=== PATIENT | male | born 1950 | race Caucasian/White ===

== ENCOUNTER 2024-03-17 08:44 | Day surgery (SDC) | payer MEDICARE, MEDICAID, SELFPAY ==
[2024-03-16 12:28] LABS: Basophils % (Auto) 0 % (0-2.5); Eosinophils % (Auto) 1 % (0-10); Hematocrit 42.1 % (41.0-53.0); Hemoglobin 13.1 g/dL (13.5-16.0); Immature Granulocytes % (Auto) 1 % (0-0); Immature Granulocytes Auto 0.06 Thou/mm3 (0.00-0.00); Lymphocytes # (Auto) 0.7 Thou/mm3 (1.0-4.8); Lymphocytes % (Auto) 14 % (10-50); Mean Corpuscular HGB Conc 31.1 g/dl (31.0-37.0); Mean Corpuscular Hemoglobin 25.6 pg (25.0-35.0); Mean Corpuscular Volume 82 fL (80-100); Monocytes # (Auto) 0.4 Thou/mm3 (0.0-0.8); Monocytes % (Auto) 9 % (0-12); Neutrophils # (Auto) 3.9 Thou/mm3 (1.8-7.7); Neutrophils % (Auto) 75 % (37-80); Nucleated Red Blood Cell % 0 /100 WBC (0); Platelet Count 169 Thou/mm3 (140-440); RDW Standard Deviation 53.4 fL (35.1-43.9); Red Blood Count 5.11 Miln/mm3 (4.50-5.90); White Blood Count 5.2 Thou/mm3 (3.8-10.6)
[2024-03-16 12:35] LABS: Anion Gap 8 (7-16); BUN/Creatinine Ratio 20 Ratio (12-20); Blood Urea Nitrogen 26 mg/dL (9-23); Calcium 9.2 mg/dL (8.3-10.6); Carbon Dioxide 23.1 mMol/L (20.0-31.0); Chloride 104 mMol/L (98-107); Creatinine (Component) 1.3 mg/dL (0.6-1.3); Glucose 271 mg/dL (74-106); INR 1.2 (0.9-1.3); Osmolality,Calculated 284 (275-295); Partial Thromboplastin Time 30.3 Seconds (22.0-36.0); Prothrombin Time 12.5 Seconds (9.0-12.2); Sodium 135 mMol/L (136-145); eGFR 58 See Note
[2024-03-17] VITALS (9 sets, daily range): BP systolic 104–153; BP diastolic 65–113; PULSE 55–91; RESP 16–85; TEMP 36.7–36.8; O2SAT 94–100; BMI 26.2
--- NOTE | 2024-03-17 08:34 | ECHO_ITS ---
Transesophageal Echo Report Ht (in): 60 Wt (lb): 158 Exam Location: Infrastructure Consultant Status: Outpatient Ferry Operator: Jyotsna Blanca Indications: Procedure Performed: BP: 153 / 113 HR: 93 Contrast: Agitated Saline Rhythm: Atrial fibrillation Technical Quality: Fair Total Dose(mL): MEASUREMENTS DOPPLER TR Peak Velocity 341.0 cm/s TR Peak Gradient 46.8 mmHg (Male / Female) Normal Values Medications The patient is medicated with 3mg of intravenous Versed and 75mcg of intravenous Fentanyl. Complications There are no complications piror to, during or in recovery from the transesophageal echocardiogram. FINDINGS Left Ventricle Normal left ventricular size, wall thickness, systolic function with no obvious regional wall motion abnormalities. The ejection fraction is visually estimated at 50%. Right Ventricle The right ventricle is normal in size and systolic function. The estimated right ventricular systoli c pressure, 61mmHg. RAP 15. Left Atrium The left atrium is moderately dilated. Right Atrium The right atrium is moderately dilated. Atrial Appendages The left atrial appendage appears normal with no evidence for thrombus. Atrial Septum The interatrial septum appears normal with no evidence of a shunt. Aorta The aorta is normal. Mitral Valve The posterior mitral valve leaflet is flail. There is ruptured chordae tendineae. The posterior mitr al valve porlaspe. There is moderate to severe mitral valve regurgitation. Aortic Valve The aortic valve is trileaflet and normal.There is mild aortic valve regurgitation. Tricuspid Valve The tricuspid valve is normal. There is moderate tricuspid valve regurgitation. Pulmonic Valve The pulmonic valve is normal. There is no significant pulmonic valve regurgitation. Vessels The pulmonary artery appears normal. The inferior vena cava pulmonary and hepatic veins appear priscila l. Pericardium The pericardium is normal.There is no significant pericardial effusion. CONCLUSIONS Indication: Afib and MR evalutaion. No evidence of LA/JOSE ALBERTO thrombus. No evidence of PFO or ASD. Negative bubble study. The posterior mitral valve leaflet is flail along with P2 scallop prolapse and ruptured chordae tend inae. Severe eccntric MR, directing anteriorly with PISA radius 1 cm. . EROA: 48 mm^2 and RVOL 71ml/beat. There is pulmonary veins systolic reversal flow. Normal LV size and low normal LV function. Estimated EF around 45-50% Normal RV size and function. Mild AI, Moderate TR. Moderate biatrial dilation Bhavik Anumandla (Electronically Signed) Final Date: 18 March 2024 01:40
[2024-03-17] MEDS: APIXABAN 2.5 MG TABLET 5 MG PO (08:58)
[2024-03-17 10:04] LABS: COVID-19 Antigen (In-House) Negative (Negative)
--- NOTE | 2024-03-17 12:00 | ESOP_ITS ---
Procedure Direct current cardioversion for uncontrolled Atrial fibrillation Moderate Conscious Sedation with Versed and Fentanyl Date of Procedure 03/17/24 Pre Op Diagnosis Paroxysmal Atrial Fibrillation Indication Atrial Fibrillation Post Op Diagnosis Normal Sinus Rhythm restored. Procedure Description Patient was in atrial fibrillation and ventricular rate was controlled came in for elective cardioversion as patient was having significant symptoms for the Afib. Decision was made to perform cardioversion for the patient after performing a transesophageal echocardiogram. Transesophageal echocardiogram was completed today and did not show any significant LA or JOSE ALBERTO thrombus.? Please see EDDIE report from today for rest of the findings.? Patient was already on anticoagulation with eliquis.. Patient was taken to the recyclable materials sorter for the EDDIE and cardioversion, both anterior and posterior pads were placed.? Patient was given moderate sedation and received a total of 4 mg of Versed and 75 mcg of fentanyl prior to the procedure to provide him enough for sedation. A biphasic defibrillator was used.? A single 100 J synchronized shock was given and the patient converted successfully into normal sinus rhythm.? No complications during or after the procedure.? Patient is doing well.? His heart rate was stable between 50 to 70 bpm and appears to be normal sinus rhythm on the telemetry.? Recommend to perform an EKG to document normal sinus rhythm postprocedure.? Patient will be monitored in the recyclable materials sorter for the next 1-2 hours and will be discharged home if hemodynamically stable. Will adjust his medications for atrial fibrillation as outpatient. Estimated Blood Loss 0 Specimen(s) Specimen(s): None Conclusion Successful direct current cardioversion of Atrial Fibrillation / Flutter to Normal Sinus Rhythm Recommendation Continue metoprolol XL 50 mg Q Day if BP stable. Continue Eliquis 5 mg BID for anticaogulation. EKG to document NSR post procedure. No driving for 24 hours. Patient recommended to follow up in 1 week in the clinic. Surgical Staff Surgeon: Bhavik Rasheed MD
[2024-03-17] MEDS: BENZOCAINE 20% (Hurricaine) SPRAY 1 DOSE TOP (12:16)
[2024-03-17] MEDS: fentaNYL CIT INJ 50 mCg/ML AMP 2ML 75 MCG IV (12:17)
[2024-03-17] MEDS: MIDAZOLAM INJ 1 MG/ML VIAL 2 ML 4 MG IV (12:17)
--- NOTE | 2024-03-17 13:08 | EKG_ITS ---
[facility] Test Date: 2024-03-17 Pat Name: TREY MAYORGA Department: Room: - Gender: Male Gate Watch: : 1950 Requested By: Bhavik Rasheed Order Number: [id number] Reading MD: Bhavik Rasheed Measurements Intervals [place] Rate: 62 P: 28 MN: 240 QRS: 78 QRSD: 109 T: 13 QT: 395 QTc: 404 Interpretive Statements SINUS RHYTHM WITH FIRST DEGREE AV BLOCK WITH FREQUENT SUPRAVENTRICULAR PREMATURE COMPLEXES No previous ECG available for comparison /store/S0/[id number].pdf
== END 2024-03-17 14:00 | disposition home or self-care (01) ==
PROVIDERS: PCP Internal Medicine Cardiovascular Disease; Referring Provider Internal Medicine Cardiovascular Disease; Visit Provider Internal Medicine Cardiovascular Disease
PROC: 5A2204Z Restoration of Cardiac Rhythm, Single (ICD-10-PCS; CPT 92960; principal; 2024-03-17 08:30)
PROC: (CPT 93312; 2024-03-17 08:30)
DX: I48.0 Paroxysmal atrial fibrillation (principal)
CPT/HCPCS: 92960; 36415; 80048; 85025; 85610; 85730; 87811; 93005; 93312; J2250; J3010; A9270

== ENCOUNTER → 2024-05-05 | Outpatient (CLI) | payer MEDICARE, MEDICAID, SELFPAY ==
[2024-05-05 14:14] LABS: Anion Gap 7 (7-16); BUN/Creatinine Ratio 26 Ratio (12-20); Blood Urea Nitrogen 37 mg/dL (9-23); Calcium 9.5 mg/dL (8.3-10.6); Carbon Dioxide 30.9 mMol/L (20.0-31.0); Chloride 103 mMol/L (98-107); Creatinine (Component) 1.4 mg/dL (0.6-1.3); Glucose 185 mg/dL (74-106); Magnesium 2.3 mg/dL (1.6-2.6); Osmolality,Calculated 294 (275-295); Potassium 3.9 mMol/L (3.4-5.1); Sodium 141 mMol/L (136-145); eGFR 53 See Note
== END | disposition home or self-care (01) ==
LOC: COPL 12:24
PROVIDERS: Referring Provider Internal Medicine Cardiovascular Disease; Visit Provider Internal Medicine Cardiovascular Disease
DX: I10 Essential (primary) hypertension (principal); I48.91 Unspecified atrial fibrillation
CPT/HCPCS: 36415; 80048; 83735

== ENCOUNTER 2024-06-14 12:57 | Emergency (ER) | payer MEDICARE, MEDICAID, SELFPAY ==
--- NOTE | 2024-06-14 13:06 | PC.NURSE ---
PT ASSESSED BY DR. THOMPSON. PER DR. THOMPSON, NO NEED TO CALL STROKE ALERT.
--- NOTE | 2024-06-14 13:23 | XR_ITS ---
Examination: CT brain head without contrast. 2-D sagittal coronal reconstructions Date and time of exam:June 14, 2024 1431 hrs. Indications: Headaches unable to open right eye beginning one week ago CTDI: vol (mGy):49.7 DLP: (mGycm):983 Technique: Multiple CT axial sections of the brain have been obtained, 5 mm slice thickness. Contrast has not been administered. 2-D sagittal, coronal reconstructions have been obtained Low dose protocols were performed. One or more of the following dose reduction techniques were used; automated exposure control, adjustment of the mA and/or KV according to patient size, use of iterative reconstruction technique. Findings: No significant ventricular enlargement. Intra-axial or extra-axial hemorrhage density is not seen. No mass effect or midline shift Basal cisterns are not remarkable. Fourth ventricle is midline. Cranial vault intact. Significant right maxillary antral right ethmoid sinus disease Impression: Negative for acute hemorrhage, mass effect or midline shift If symptoms persist, consider brain MRI follow-up
[2024-06-14 14:13] VITALS: BP 149/72; PULSE 98; RESP 20; TEMP 36.6; O2SAT 97
--- NOTE | 2024-06-14 14:50 | PD.EDNEURO ---
Neuro Symptoms Deficit-RME/HPI General Chief Complaint: Neuro Symptoms/Deficit Stated Complaint: CAN'T OPEN RIGHT EYE Time Seen by Provider: 06/14/24 13:22 Arrival date/time: 06/14/24 12:57 RME / HPI RME / HPI Narrative: This section includes all my notes and documentations, including HPI, PE, and ED course.? Bennett Toth MD HPI: 74-year-old male here with 1 week history of not being able to open the right eye. No speech or visual impairment. No loss of power in the arms or legs. No numbness or tingling. No other complaints. ROS: All negative except as documented in HPI. Physical Exam: General:? Alert and oriented.? No acute distress when remaining still.?? Eyes: PERRL. EOMI. Right proptosis noted. ENT:? No nasal congestion.??Pharynx normal. TM normal bilaterally. Neck:? Supple.? No carotid bruit. Heart:? RRR.? Lungs:? No respiratory distress.? Good air movement.? No rhonchi, wheezing, rales.?? Abdomen:? Soft and nontender.?? Legs:? No clubbing, cyanosis, edema.? Skin:? Warm and dry.?? Neuro:? Alert and oriented X 3.??Cranial nerves II to XII grossly normal. No peripheral motor deficits. I reviewed all diagnostic test results. My review of the CT report is?Negative for acute hemorrhage, mass effect or midline shift. Blood tests unremarkable. At this point, diagnoses include?ptosis of eyelid, right . Prescribed prednisone and Valtrex and recommended more outpatient workup. Based on my best medical judgment, made decision no further evaluation or treatment indicated at this time.? Patient understands and agrees to the discharge instructions customized and printed, see below. Discharge Instructions from Dr. Toth printed for you: 1. After evaluation, there is no stroke. And your blood tests were normal, including your sugar level of 112. 2. Exact cause of not being able to open your right eye for a week was not determined. Take prednisone and Valtrex as prescribed, this may help recover your disability. 3. See your private doctor on 06/15/2024 for recheck and further care. Ask to review all test results and official radiology reports, to make sure you receive all necessary follow-ups and monitoring. Ask for help with more care, including MRI imaging and referral to see specialists. 4. Seek immediate medical care with worsening, loss of power in the arms or legs, or with any concerns. Instrucciones de neil del Dr. Toth impresas para usted: 1. Despu?s de la evaluaci?n, no hay accidente cerebrovascular. Y johana an?lisis de josseline fueron normales, incluido anaya nivel de az?car de 112. 2. No se determin? la causa exacta de no poder abrir el pamela derecho valerie alison semana. [place] prednisona y Valtrex seg?n lo prescrito, esto puede ayudar a recuperar anaya discapacidad. 3. Visite a anaya m?dico privado el 15/06/2024 para volver a controlarlo y recibir m?s atenci?n. Solicite revisar todos los resultados de las pruebas y los informes radiol?gicos oficiales, para asegurarse de recibir todos los seguimientos y monitoreo necesarios. Solicite ayuda con m?s atenci?n, incluidas im?genes por resonancia magn?graeme y derivaci?n a especialistas. 4. Busque atenci?n m?dica inmediata si empeora, pierde fuerza en los brazos o las piernas o tiene alguna inquietud. Bennett Toth MD Related Data Home Medications ?Medication ?Instructions ?Recorded ?Confirmed atorvastatin 40 mg tablet 40 mg PO QDAY 02/25/24 02/25/24 bumetanide 2 mg tablet 2 mg PO QDAY 02/25/24 02/25/24 empagliflozin 25 mg tablet 25 mg PO QDAY 02/25/24 02/25/24 (Jardiance) glipizide 10 mg tablet, extended 10 mg PO BID 02/25/24 02/25/24 release 24 hr metoprolol succinate 50 mg capsule 50 mg PO QDAY 02/25/24 02/25/24 sprinkle, ext. release 24 hr tamsulosin 0.4 mg capsule 0.4 mg PO QDAY 02/25/24 02/25/24 Previous Rx's ?Medication ?Instructions ?Recorded prednisone 50 mg tablet 50 mg PO QDAY #5 tabs 06/14/24 valacyclovir 1 gram tablet 1,000 mg PO BID #10 tabs 06/14/24 (Valtrex) Allergies Allergy/AdvReac Type Severity Reaction Status Date / Time No Known Allergies Allergy Verified 10/05/20 09:23 Review of Systems Review of Systems Systems Reviewed: All systems reviewed, normal except as documented Past Medical History Past Medical History CARDIAC: Positive Cardiac Disorders, Hypercholesterolemia, Congestive Heart Failure and Hypertension GASTROINTESTINAL: Positive Gastrointestinal Disorders (nausea) ENDOCRINE: Positive Endocrine Disorders and Diabetes Mellitus Type 2 PSYCHO/SOCIAL: Positive Anxiety Family History FAMILY HISTORY: Negative Family Cardiac Disorders or Family Cancer Surgical History SURGICAL: Negative Cardiac Surgery, Pacemaker, Endocrine Surgery, Ear Surgery, Abdominal Surgery, Nephrectomy, Joint Replacement or Mastectomy Social History SMOKING STATUS: Never smoker ED Exam Narrative Physical exam: As noted in HPI Course Quality Measures none Orders Category Date Time Status CT head/brain wo con Stat Exams 06/14/24 13:23 Completed CBC Stat Lab 06/14/24 15:41 Completed CMP [Comprehensive Metabolic Panel] Stat Lab 06/14/24 15:41 Completed CRP [C-Reactive Protein] Stat Lab 06/14/24 15:41 Completed ESR [Sed Rate (ESR)] Stat Lab 06/14/24 15:41 Completed Magnesium Stat Lab 06/14/24 15:41 Completed Procalcitonin Stat Lab 06/14/24 15:41 Completed TSH [Thyroid Stimulating Hormone] Stat Lab 06/14/24 15:41 Completed Vital Signs Vital signs: Vital Signs Temperature 97.8 F 06/14/24 14:13 Pulse Rate 98 06/14/24 14:13 Respiratory Rate 20 06/14/24 14:13 Blood Pressure 149/72 H 06/14/24 14:13 Pulse Oximetry (%) 97 06/14/24 14:13 Oxygen Delivery Method Room Air 06/14/24 14:13 Pulse ox is 97% on room air which is adequate. Neuro Symptoms / Deficit Patient data External records reviewed:: [facility] previous records (I reviewed H&P on 03/17/2024) Clinical information provided by:: patient Social determinants that could affect healthcare access:: none Patient has the following chronic illnesses:: heart failure, diabetes, hyperlipidemia How is presenting disease/condition affected by chronic disease/condition?: uneffected by Evaluation data The following diagnostics were reviewed and interpreted by me:: radiology exam(s) Lab and/or radiology exams considered but not ordered:: None Interpretation Summary: My review of the CT report is?Negative for acute hemorrhage, mass effect or midline shift. Medications / Prescriptions Medications or Prescriptions considered but not ordered:: None Medication administrations:: None Consultations Consultation(s) initiated? (list below): No Diagnosis Neuro Differential Diagnosis: subarachnoid hemorrhage, cerebrovascular accident, transient cerebral ischemia and other (Headache ) Most likely diagnosis given after review of the tests above:: Ptosis of eyelid, right Admission Indicated Admission indicated?: not indicated Explain why admission is indicated or not indicated:: Admission was not indicated Admission Request Was there a request for admission?: No Disposition Plan Disposition Plan: Discharge Discharge Attestation Discharge Attestation: The patient and all family members were given an opportunity to ask questions and understood the discharge instructions. Discharge instructions specifically effects, indications for sooner follow up or return to the emergency department, and the expected course of current diagnosis. Patient condition: Stable Discharge Plan Plan Patient Disposition: HOME (Self Care) Prescriptions/Referrals Prescriptions/Med Rec: New valacyclovir [Valtrex] 1 gram tablet 1,000 mg PO BID Qty: 10 0RF prednisone 50 mg tablet 50 mg PO QDAY Qty: 5 0RF No Action atorvastatin 40 mg Tablet 40 mg PO QDAY glipizide 10 mg Tablet Extended Release 24hr 10 mg PO BID tamsulosin 0.4 mg Capsule 0.4 mg PO QDAY Jardiance 25 mg Tablet 25 mg PO QDAY metoprolol succinate 50 mg Capsule,Sprinkle,Er 24hr 50 mg PO QDAY bumetanide 2 mg Tablet 2 mg PO QDAY Referrals: No Primary/Family,Physician [Primary Care Provider] - In 1 week Problem List Clinical Impression: Ptosis of eyelid, right Patient/Caregiver Discharge Instructions Discharge Activity: activity as tolerated Additional Instructions: Discharge Instructions from Dr. Toth printed for you: 1. After evaluation, there is no stroke. And your blood tests were normal, including your sugar level of 112. 2. Exact cause of not being able to open your right eye for a week was not determined. Take prednisone and Valtrex as prescribed, this may help recover your disability. 3. See your private doctor on 06/15/2024 for recheck and further care. Ask to review all test results and official radiology reports, to make sure you receive all necessary follow-ups and monitoring. Ask for help with more care, including MRI imaging and referral to see specialists. 4. Seek immediate medical care with worsening, loss of power in the arms or legs, or with any concerns. Instrucciones de neil del Dr. Toth impresas para usted: 1. Despu?s de la evaluaci?n, no hay accidente cerebrovascular. Y johana an?lisis de josseline fueron normales, incluido anaya nivel de az?car de 112. 2. No se determin? la causa exacta de no poder abrir el pamela derecho valerie alison semana. [place] prednisona y Valtrex seg?n lo prescrito, esto puede ayudar a recuperar anaya discapacidad. 3. Visite a anaya m?dico privado el 15/06/2024 para volver a controlarlo y recibir m?s atenci?n. Solicite revisar todos los resultados de las pruebas y los informes radiol?gicos oficiales, para asegurarse de recibir todos los seguimientos y monitoreo necesarios. Solicite ayuda con m?s atenci?n, incluidas im?genes por resonancia magn?graeme y derivaci?n a especialistas. 4. Busque atenci?n m?dica inmediata si empeora, pierde fuerza en los brazos o las piernas o tiene alguna inquietud. Print Language: Lithuanian Stand Alone Forms: Meri Award Info., Patient Portal Info Letter
[2024-06-14 16:02] LABS: Basophils # (Auto) 0.1 Thou/mm3 (0.0-0.2); Basophils % (Auto) 1 % (0-2.5); Eosinophils # (Auto) 0.4 Thou/mm3 (0.0-0.5); Eosinophils % (Auto) 5 % (0-10); Hematocrit 42.8 % (41.0-53.0); Hemoglobin 13.5 g/dL (13.5-16.0); Immature Granulocytes % (Auto) 1 % (0-0); Immature Granulocytes Auto 0.09 Thou/mm3 (0.00-0.00); Lymphocytes # (Auto) 0.8 Thou/mm3 (1.0-4.8); Lymphocytes % (Auto) 10 % (10-50); Mean Corpuscular HGB Conc 31.5 g/dl (31.0-37.0); Mean Corpuscular Hemoglobin 24.5 pg (25.0-35.0); Mean Corpuscular Volume 78 fL (80-100); Monocytes # (Auto) 0.5 Thou/mm3 (0.0-0.8); Monocytes % (Auto) 6 % (0-12); Neutrophils # (Auto) 6.6 Thou/mm3 (1.8-7.7); Neutrophils % (Auto) 78 % (37-80); Nucleated Red Blood Cell % 0 /100 WBC (0); Platelet Count 288 Thou/mm3 (140-440); RDW Standard Deviation 54.7 fL (35.1-43.9); Red Blood Count 5.52 Miln/mm3 (4.50-5.90); White Blood Count 8.5 Thou/mm3 (3.8-10.6)
[2024-06-14 16:36] LABS: Alanine Aminotransferase 14 U/L (10-49); Albumin, Serum 4.1 gm/dL (3.4-4.8); Albumin/Globulin Ratio 1.4 (1.2-2.2); Anion Gap 11 (7-16); Aspartate Amino Transferase 12 U/L (0-34); BUN/Creatinine Ratio 19 Ratio (12-20); Bilirubin,Total 1.8 mg/dL (0.3-1.2); Blood Urea Nitrogen 19 mg/dL (9-23); C-Reactive Protein 0.5 mg/dL (0.0-0.9); Calcium 9.3 mg/dL (8.3-10.6); Calcium (Corrected) 9.3 mg/dL (8.5-10.1); Carbon Dioxide 25.3 mMol/L (20.0-31.0); Chloride 104 mMol/L (98-107); Glucose 112 mg/dL (74-106); Osmolality,Calculated 282 (275-295); Potassium 4.6 mMol/L (3.4-5.1); Procalcitonin 0.14 ng/ml (0.0-0.49); Sodium 140 mMol/L (136-145); Thyroid Stimulating Hormone 1.38 uIU/mL (0.55-4.78); Total Protein 7.1 gm/dL (5.7-8.2); eGFR > 60 See Note
[2024-06-14 16:45] LABS: Sed Rate (ESR) 36 mm/hr (0-20)
[2024-06-14 16:49] LABS: Alkaline Phosphatase 135 U/L (46-116)
== END 2024-06-14 17:07 | disposition home or self-care (01) ==
PROVIDERS: Emergency Provider Emergency Medicine
DX: H02.401 Unspecified ptosis of right eyelid (principal)
CPT/HCPCS: 36415; 70450; 80053; 83735; 84145; 84443; 85025; 85652; 86140; 99284